=== PATIENT | female | born 1965 | race Caucasian/White ===

== ENCOUNTER 2017-01-10 00:39 | Emergency (ER) | payer SELFPAY ==
[~2017-01-10 00:39] MED LIST: ARMOUR THYROID60 M2 PO; NASACORT10.8 M1 NS; ZITHROMAX250 M1 PO
== END 2017-01-10 01:34 | disposition left against medical advice (07) ==
LOC: EDMED 00:39
DX: H57.10 Ocular pain, unspecified eye (principal); Z53.21 Procedure and treatment not carried out due to patient leaving prior to being seen by health care provider